=== PATIENT | male | born 1960 | race Caucasian/White ===

== ENCOUNTER 2023-05-16 13:55 | Inpatient (IN) ==
[2023-05-16 14:47] LABS: Basophils # (auto) 0.08 K/uL (0.00-0.20); Eosinophils % (auto) 3.9 %; Hematocrit (blood only) 42.4 % (42.0-52.0); Immature Granulocytes # (auto) 0.04 K/uL (0.01-0.20); Immature Granulocytes % (auto) 0.5 %; Lymphocytes # (auto) 1.89 K/uL (1.20-3.40); Lymphocytes % (auto) 24.5 %; Mean Corpuscular Hemoglobin 30.5 pg (25.0-34.0); Mean Corpuscular Hgb Conc 35.4 g/dL (32.0-36.0); Mean Corpuscular Volume 86.4 fL (80.0-100.0); Monocytes # (auto) 0.96 K/uL (0.11-0.59); Monocytes % (auto) 12.4 %; Neutrophils # (auto) 4.45 K/uL (1.40-6.50); Neutrophils % (auto) 57.7 %; Platelet Count 349 K/uL (130-400); RDW Coefficient of Variation 12.2 % (11.5-14.5); RDW Standard Deviation 38.7 fL (36.4-46.3); Red Blood Count 4.91 M/uL (4.70-6.10); White Blood Count 7.72 K/ul (4.8-10.8)
--- NOTE | 2023-05-16 14:48 | Emergency Department Note ---
Impression & Plan New onset atrial fibrillation, Abnormal ECG ED Provider Note NAME: SAM MOJICA AGE: 62 SEX: M : 1960 ARRIVES VIA: Walk-In INFORMANT: Patient ED PROVIDER(S): John Monae DO CHIEF COMPLAINT: AFIB HPI: Patient is a 62-year-old male with a past medical history of hypertension who presents to the ER as he went in for preop testing was found to be in A-fib. He denies any headache or change in vision. No chest pain or shortness of breath. No belly pain. No nausea, vomiting, or diarrhea. He notes he is very active and does workout twice a week swimming and has no complaints. No swelling of the legs. No previous history of A-fib or stroke or diabetes or hyperlipidemia. ADDITIONAL HISTORY OBTAINED: Per HPI Chronic Medical/Social Conditions Affecting Care: Per HPI PAST MEDICAL HISTORY:See Below PAST SURGICAL HISTORY:See Below FAMILY HISTORY:See Below SOCIAL HISTORY:See Below HOME MEDICATIONS:See Below ALLERGIES:See Below VITALS:See Below PHYSICAL EXAMINATION: GENERAL: Sitting up in bed, alert, well appearing, well nourished, no distress, non-toxic EYE EXAM: normal conjunctiva. OROPHARYNX: mucous membranes are moist NECK: supple, no nuchal rigidity, no adenopathy, non-tender LUNGS: Clear to auscultation. Normal chest wall mechanics HEART: No murmurs, irregular irregular ABDOMEN: abdomen soft, non-tender, normo-active bowel sounds, no masses, no rebound or guarding. UPPER EXTREMITIES: upper extremities are grossly normal. LOWER EXTREMITIES: No pitting edema. NEURO EXAM: Normal sensorium, cranial nerves II-XII grossly intact, normal speech, no gross weakness of arms, no gross weakness of legs. MEDICAL DECISION MAKING: Patient is a 62-year-old male who presents ER for above-stated complaint. IV was established blood work was obtained. Labs show no significant leukocytosis or anemia. INR unremarkable. BMP with mild hyponatremia. LFTs bilirubin is unremarkable. Troponin negative. Portable AP upright 1 view of the chest shows no focal infiltrate. Patient was given IV Lopressor and fluids. Updated at bedside and discussed with the hospitalist for further evaluation management treatment. Consults/Care Managements Discussions: Per MDM Triage Nursing notes reviewed. Limited review of prior medical records performed Vital Signs: reviewed and remarkable for HTN, tachy Differential diagnosis: Cardiac ischemia, aortic dissection, pulmonary embolism, pneumothorax, pneumonia, pericarditis, myocarditis, esophageal rupture, GERD, cholecystitis, pancreatitis, musculoskeletal, as well as other pathologies. ER treatment provided: See below Diagnostics interpreted by me include EKG and cardiac monitoring as listed below: -Cardiac Monitoring: An order was placed for continuous cardiac monitoring. The monitor shows a rate of 101 with AFIB rhythm. -ECG: A-fib rate 91 Normal axis No PVCs QTc 469 -Laboratory studies:Interpreted by me as stated above in MDM and shown below. Imaging studies: Xrays: As interpreted by me: Portable AP upright 1 view of the chest shows no focal infiltrate CTs show: none Procedures:none Critical Care: None Past Med/Surg History Medical History (Updated 05/16/23 @ 18:40 by John Monae DO) Atrial fibrillation New onset- discovered at PAT appt 05/16/23 Arthritis HTN (hypertension) Surgical History Hx of colonoscopy History of repair of ACL left Family History (Updated 05/16/23 @ 13:25 by Sallie Cross, XI) Other No family history of adverse response to anesthesia Social History Smoking Status: Never smoker Second Hand Exposure: No; Do You Dip or Chew Tobacco: No; Hx Alcohol Use: Yes Alcohol type: beer Hx Substance Use: No Preferred Language: Wolof Communication Ability: Effective Digital Print Operator Required: No Beliefs That Will Affect Care: None Current Living Situation: Spouse Feels Safe at Home: Yes Assistive Devices: None Allergies Allergies Allergy/AdvReac Type Severity Reaction Status Date / Time No Known Allergies Allergy Verified 05/16/23 13:08 Home Meds Home Medications Medication Instructions Recorded Confirmed amlodipine 10 mg tablet 10 mg PO HS 05/16/23 05/16/23 ibuprofen 200 mg tablet (Advil) 200 mg PO Q6H PRN Pain 05/16/23 05/16/23 losartan 100 1 tab PO QAM 05/16/23 05/16/23 mg-hydrochlorothiazide 25 mg tablet metoprolol succinate 25 mg 25 mg PO QAM 05/16/23 05/16/23 tablet,extended release 24 hr Results & Data (ED) Vital Signs Vital Signs - 24 hr 05/16/23 13:56 05/16/23 13:59 05/16/23 14:31 Temperature 35.9 C L Temperature Source Temporal Artery Scan Pulse Rate 108 H 93 H Pulse Rate from SpO2 Sensor 99 H Pulse Rhythm Respiratory Rate 15 12 Respiratory Effort / Characteristics Non-Labored Spontaneous Respiratory Depth Normal Normal Respiratory Pattern Regular Blood Pressure 158/106 H Blood Pressure Mean 123 Pulse Oximetry 98 97 Oxygen Delivery Method Room Air Room Air Sepsis Recent Fever Within 48 Hours No Sepsis New/Unexplained Change in Mental Status No Sepsis Action Taken by Nursing No Action Required 05/16/23 14:33 05/16/23 14:33 05/16/23 15:00 Temperature Temperature Source Pulse Rate 92 H 83 Pulse Rate from SpO2 Sensor 88 Pulse Rhythm Respiratory Rate 18 14 Respiratory Effort / Characteristics Respiratory Depth Respiratory Pattern Blood Pressure 139/91 Blood Pressure Mean 107 Pulse Oximetry 94 Oxygen Delivery Method Sepsis Recent Fever Within 48 Hours Sepsis New/Unexplained Change in Mental Status Sepsis Action Taken by Nursing 05/16/23 15:00 05/16/23 15:25 05/16/23 15:30 Temperature Temperature Source Pulse Rate 98 H Pulse Rate from SpO2 Sensor Pulse Rhythm Regular Respiratory Rate 20 Respiratory Effort / Characteristics Respiratory Depth Respiratory Pattern Blood Pressure 153/89 H 151/111 H Blood Pressure Mean 98 126 Pulse Oximetry 96 Oxygen Delivery Method Room Air Sepsis Recent Fever Within 48 Hours Sepsis New/Unexplained Change in Mental Status Sepsis Action Taken by Nursing 05/16/23 15:30 05/16/23 15:35 05/16/23 16:00 Temperature Temperature Source Pulse Rate 96 H 109 H Pulse Rate from SpO2 Sensor 102 H Pulse Rhythm Respiratory Rate 15 Respiratory Effort / Characteristics Respiratory Depth Respiratory Pattern Blood Pressure 162/102 H Blood Pressure Mean 123 Pulse Oximetry 96 Oxygen Delivery Method Sepsis Recent Fever Within 48 Hours Sepsis New/Unexplained Change in Mental Status Sepsis Action Taken by Nursing 05/16/23 16:00 05/16/23 16:10 05/16/23 16:11 Temperature 37.0 C Temperature Source Oral Pulse Rate 95 H 107 H Pulse Rate from SpO2 Sensor 90 106 H Pulse Rhythm Respiratory Rate 12 14 Respiratory Effort / Characteristics Respiratory Depth Respiratory Pattern Blood Pressure Blood Pressure Mean Pulse Oximetry 98 96 Oxygen Delivery Method Sepsis Recent Fever Within 48 Hours Sepsis New/Unexplained Change in Mental Status Sepsis Action Taken by Nursing 05/16/23 16:11 05/16/23 17:30 05/16/23 18:15 Temperature Temperature Source Pulse Rate 112 H 82 Pulse Rate from SpO2 Sensor Pulse Rhythm Respiratory Rate Respiratory Effort / Characteristics Respiratory Depth Respiratory Pattern Blood Pressure 152/105 H 131/99 Blood Pressure Mean 110 Pulse Oximetry Oxygen Delivery Method Sepsis Recent Fever Within 48 Hours Sepsis New/Unexplained Change in Mental Status Sepsis Action Taken by Nursing Laboratory Data 05/16/23 14:12 05/16/23 16:27 Lab Results 05/16/23 05/16/23 Range/Units 14:12 16:27 WBC 7.72 (4.8-10.8) K/ul RBC 4.91 (4.70-6.10) M/uL Hgb 15.0 (14.0-18.0) g/dl Hct 42.4 (42.0-52.0) % MCV 86.4 (80.0-100.0) fL MCH 30.5 (25.0-34.0) pg MCHC 35.4 (32.0-36.0) g/dL RDW Std Deviation 38.7 (36.4-46.3) fL RDW Coeff of Nicole 12.2 (11.5-14.5) % Plt Count 349 (130-400) K/uL MPV 9.0 L (9.4-12.4) fL Immature Gran % (Auto) 0.5 % Neut % (Auto) 57.7 % Lymph % (Auto) 24.5 % [place] % (Auto) 12.4 % Eos % (Auto) 3.9 % Baso % (Auto) 1.0 % Neut # (Auto) 4.45 (1.40-6.50) K/uL Lymph # (Auto) 1.89 (1.20-3.40) K/uL [place] # (Auto) 0.96 H (0.11-0.59) K/uL Eos # (Auto) 0.30 (0.00-0.50) K/uL Baso # (Auto) 0.08 (0.00-0.20) K/uL Immature Gran # (Auto) 0.04 (0.01-0.20) K/uL PT 10.2 (9.0-12.0) Seconds INR 0.9 (0.9-1.1) APTT 31 (21-31) Seconds PTT Ratio 1.1 Sodium 132 L (136-145) mmol/L Potassium 3.7 3.9 (3.5-5.1) mmol/L Chloride 97 L (98-107) mmol/L Carbon Dioxide 26 (21-32) mmol/L Anion Gap 9 (3-11) BUN 14 (6-23) mg/dl Creatinine 0.91 (0.6-1.4) mg/dl Est Cr Clr Drug Dosing 101.4 ml/min Est GFR ( Amer) 105.8 ml/min Est GFR (Non-Af Amer) 91.3 ml/min BUN/Creatinine Ratio 15.4 (10-20) Glucose 113 H (70-99(Fasting)) mg/dl Calcium 9.8 (8.6-10.3) mg/dl Total Bilirubin 0.6 (0.2-1.0) mg/dl AST 16 (13-39) U/L ALT 17 (7-52) U/L Alkaline Phosphatase 102 (34-104) U/L Troponin I High Sens < 2.3 2.6 (0-20) pg/ml Total Protein 8.1 (6.0-8.3) gm/dl Albumin 4.6 (3.4-5.0) gm/dl Globulin 3.5 (2.5-4.0) gm/dl Albumin/Globulin Ratio 1.3 (0.9-2) Administered Medications Discontinued Medications Sodium Chloride (Nss) 1,000 mls @ 999 mls/hr IV .Q1H1M ONE Stop: 05/16/23 17:34 Last Admin: 05/16/23 17:29 Dose: 999 mls/hr Documented By: RADHA Metoprolol Tartrate (Metoprolol Tartrate 1 Mg/Ml Vial) 5 mg IV NOW STA Stop: 05/16/23 16:35 Last Admin: 05/16/23 17:30 Dose: 5 mg Documented By: RADHA Potassium Chloride (Potassium Chloride Crtab 20 Meq Tabcr) 40 meq PO NOW STA Stop: 05/16/23 16:10 Last Admin: 05/16/23 17:27 Dose: 40 meq Documented By: RADHA Imaging Data Radiologist's Impression: Chest X-Ray 05/16/23 14:02 SINGLE VIEW CHEST CLINICAL HISTORY: Atypical chest pain FINDINGS: 2 AP, portable, upright chest radiographs are obtained. No prior studies are available for comparison at the time of dictation. The heart is enlarged. The pulmonary vasculature is noncongested. The lungs and pleural spaces are clear. No pneumothorax is seen. The bony thorax is grossly intact. IMPRESSION: No acute cardiopulmonary abnormality. ACT 112: Negative or not required by law. Electronically signed by: Sherif Rod M.D. 05/16/2023 3:40 PM Discharge Plan Visit Data Chief Complaint: Arrhythmia/Palpitations Stated Complaint: HEART ISSUE ED Provider: John Monae Discharge Problem: New onset atrial fibrillation, Abnormal ECG Forms Stand Alone Forms: [facility] Prescriptions Prescriptions: No Action ibuprofen [Advil] 200 mg Tablet 200 mg PO Q6H PRN (Reason: Pain) losartan-hydrochlorothiazide 100-25 mg tablet 1 tab PO QAM amlodipine 10 mg tablet 10 mg PO HS metoprolol succinate 25 mg tablet extended release 24 hr 25 mg PO QAM Referrals Referrals: Leilani Chapin PA-C [Primary Care Provider] -
[2023-05-16 14:55] LABS: Alanine Aminotransferase 17 U/L (7-52); Albumin Globulin Ratio 1.3 (0.9-2); Albumin Level 4.6 gm/dl (3.4-5.0); Alkaline Phosphatase 102 U/L (34-104); Anion Gap 9 (3-11); Aspartate Aminotransferase 16 U/L (13-39); BUN Creatinine Ratio 15.4 (10-20); Bilirubin,Total 0.6 mg/dl (0.2-1.0); Blood Urea Nitrogen 14 mg/dl (6-23); Calcium 9.8 mg/dl (8.6-10.3); Carbon Dioxide 26 mmol/L (21-32); Chloride 97 mmol/L (98-107); Creatinine Clr Calc Pharmacy 101.4 ml/min; Est GFR (African American) 105.8 ml/min; Est GFR (Non-African American) 91.3 ml/min; Globulin 3.5 gm/dl (2.5-4.0); Glucose 113 mg/dl (70-99(Fasting)); Potassium 3.7 mmol/L (3.5-5.1); Sodium 132 mmol/L (136-145); Total Protein 8.1 gm/dl (6.0-8.3)
[2023-05-16 15:01] LABS: Troponin I High Sensitivity < 2.3 pg/ml (0-20)
[2023-05-16 15:05] LABS: INR 0.9 (0.9-1.1); Partial Thromboplastin Ratio 1.1; Partial Thromboplastin Time 31 Seconds (21-31); Prothrombin Time 10.2 Seconds (9.0-12.0)
--- NOTE | 2023-05-16 15:41 | XRay Report ---
SINGLE VIEW CHEST CLINICAL HISTORY: Atypical chest pain FINDINGS: 2 AP, portable, upright chest radiographs are obtained. No prior studies are available for comparison at the time of dictation. The heart is enlarged. The pulmonary vasculature is noncongested . The lungs and pleural spaces are clear. No pneumothorax is seen. The bony thorax is grossly intact. IMPRESSION: No acute cardiopulmonary abnormality. ACT 112: Negative or not required by law. Electronically signed by: Sherif Rod M.D. 05/16/2023 3:40 PM
--- NOTE | 2023-05-16 15:44 | Electrocardiogram Report ---
Test Reason : Blood Pressure : / mmHG Vent. Rate : 114 BPM Atrial Rate : 000 BPM P-R Int : 000 ms QRS Dur : 086 ms QT Int : 330 ms P-R-T Axes : 000 058 035 degrees QTc Int : 454 ms Poor data quality, interpretation may be adversely affected Atrial fibrillation with rapid ventricular response Nonspecific ST and T wave abnormality Abnormal ECG When compared with ECG of 16-MAY-2023 13:44, (unconfirmed) Nonspecific T wave abnormality now evident in Inferior leads T wave inversion now evident in Anterior leads Confirmed by Walter Sánchez ([id number]) on 05/16/2023 3:44:21 PM Referred By: Confirmed By:Walter Sánchez
--- NOTE | 2023-05-16 15:47 | Electrocardiogram Report ---
Test Reason : Blood Pressure : / mmHG Vent. Rate : 091 BPM Atrial Rate : 000 BPM P-R Int : 000 ms QRS Dur : 094 ms QT Int : 382 ms P-R-T Axes : 000 067 037 degrees QTc Int : 469 ms Atrial fibrillation Incomplete right bundle branch block Abnormal ECG When compared with ECG of 16-MAY-2023 14:05, (unconfirmed) Nonspecific T wave abnormality, improved in Inferior leads Confirmed by Walter Sánchez ([id number]) on 05/16/2023 3:46:49 PM Referred By: Confirmed By:Walter Sánchez
[2023-05-16 17:15] LABS: Potassium 3.9 mmol/L (3.5-5.1)
[2023-05-16 17:21] LABS: Troponin I High Sensitivity 2.6 pg/ml (0-20)
[2023-05-16] MEDS: POTASSIUM CHLORIDE CRTAB 20 MEQ TABCR PO STA (17:27)
[2023-05-16] MEDS: SODIUM CHLORIDE 0.9% 1,000 ML IV ONE (17:29)
[2023-05-16] MEDS: METOPROLOL TARTRATE 1 MG/ML VIAL IV STA (17:30)
--- NOTE | 2023-05-16 17:52 | History & Physical Report ---
Date of Service May 16, 2023 Assessment & Plan (1) New onset atrial fibrillation: Plan: new onset afib, found in a preop ortho appointment today. Referred to the ER. Heart rate improved with Lopressor 5mg IV. Echo pending, TSH WNL. No evidence of WA/ACS as patient lacking symptoms and has nonischemic EKG, normal HS trop. No clinical evidence of heart failure or PE. He is on metoprolol at home. Will change this to 25mg PO BID and continue monitoring overnight. CHADS Vasc is 1. Will start heparin now but would defer longterm anticoagulation decision to cardiology who is consulted. (2) HTN (hypertension): Plan: chronic, at goal. Cont home medications. (3) Arthritis: Plan: Knee OA reported with upcoming plans for knee replacements in June of this year with Dr. Nogueira in [place], [place]. Cont supportive care efforts. Appreciate cardiology thoughts on preop recommendations. DVT proph: heparin Full Code Dispo-telemetry with likely dc to home in am pending cardiology recommendations. I spent a total of60 minutes coordinating, documenting, and providing care for this patient excluding time spent in the performance of separately billed services Kimberlee Nails DO [facility] History of Present Illness Chief Complaint: palpitations Primary Care Provider: Leilani Chapin PA-C Pt presents to the ER with palpitations after being sent here from clinic where he was undergoing a preop evaluation for upcoming knee surgery in June. He reports that both knees will be done in sequence by Dr. Nogueira. He was found to be in afib with rapid ventricular response. He denies any chest pain, SOB, abdominal pain or other issues. He reports feeling well and states he works out and is taken aback by this news. He denies significant caffeine intake. He does drink 2-3 beers daily on average. He doesn't smoke or use drugs. He is compliant with his antihypertensive regimen. He reports early CAD in his brother who had an WA at age 58 and his mom also had an irregular heart beat. Allergies Allergy/AdvReac Type Severity Reaction Status Date / Time No Known Allergies Allergy Verified 05/16/23 13:08 Home Medications Medication Instructions Recorded Confirmed Type amlodipine 10 mg tablet 10 mg PO HS 05/16/23 05/16/23 History ibuprofen 200 mg tablet (Advil) 200 mg PO Q6H PRN Pain 05/16/23 05/16/23 History losartan 100 1 tab PO QAM 05/16/23 05/16/23 History mg-hydrochlorothiazide 25 mg tablet metoprolol succinate 25 mg 25 mg PO QAM 05/16/23 05/16/23 History tablet,extended release 24 hr Past Med/Surg History Medical History Atrial fibrillation New onset- discovered at PAT appt 05/16/23 Arthritis HTN (hypertension) Surgical History Hx of colonoscopy History of repair of ACL left Family History (Updated 05/16/23 @ 21:35 by Kimberlee Nails DO) Brother Coronary heart disease Mother Afib Other No family history of adverse response to anesthesia Social History (Updated 05/16/23 @ 21:36 by Kimberlee Nails DO) Smoking Status: Never smoker Second Hand Exposure: No; Do You Dip or Chew Tobacco: No; Hx Alcohol Use: Yes Alcohol type: beer Alcohol Intake Frequency Comment: 2-3 daily Hx Substance Use: No Preferred Language: Luxembourgish Communication Ability: Effective Tearoom Host Required: No Beliefs That Will Affect Care: None Current Living Situation: Spouse Feels Safe at Home: Yes Assistive Devices: None Physical Exam Physical Exam: CONSTITUTIONAL: WNWD, vitals as above, generally well-appearing, NAD EYES: normal conjunctivae, no scleral icterus ENT: external ear and nose normal, MMM NECK: trachea midline RESPIRATORY: clear to auscultation bilaterally, no crackles, rales or wheezes, normal respiratory effort CARDIOVASCULAR: irregular rate and rhythm, S1 and 2 heard without murmurs, gallops or rubs, no JVD, no peripheral edema CHEST: inspection of chest was normal GASTROINTESTINAL: soft, nontender, ND, no guarding MUSCULOSKELETAL: strength 5/5 throughout, head is normocephalic and atraumatic SKIN: warm and dry NEUROLOGIC: CN 2-12 grossly intact, no sensory deficit, normal cognition, normal speech, no tremor PSYCHIATRIC: alert cooperative and oriented to person, place and time. Euthymic mood, makes good eye contact, language grossly intact, recent and remote memory grossly intact. Results & Data Results & Data Vital Signs (Past 12 Hours) Vital Signs Temp Pulse Resp BP Pulse Ox O2 Del Method 05/16/23 17:30 112 H 131/99 05/16/23 16:11 152/105 H 05/16/23 16:11 107 H 14 96 05/16/23 16:10 37.0 C 05/16/23 16:00 95 H 12 98 05/16/23 16:00 162/102 H 05/16/23 15:35 109 H 05/16/23 15:30 96 H 15 96 05/16/23 15:30 151/111 H 05/16/23 15:25 98 H 20 96 Room Air 05/16/23 15:00 153/89 H 05/16/23 15:00 83 14 94 05/16/23 14:33 139/91 05/16/23 14:33 92 H 18 05/16/23 14:31 93 H 12 97 05/16/23 13:59 35.9 C L 108 H 15 158/106 H 98 Room Air 05/16/23 13:56 Room Air Laboratory Results Short CBC 05/16/23 Range/Units 14:12 WBC 7.72 (4.8-10.8) K/ul Hgb 15.0 (14.0-18.0) g/dl Hct 42.4 (42.0-52.0) % Plt Count 349 (130-400) K/uL BMP 05/16/23 05/16/23 14:12 16:27 Sodium 132 L Potassium 3.7 3.9 Chloride 97 L Carbon Dioxide 26 BUN 14 Creatinine 0.91 Glucose 113 H Calcium 9.8 Liver Function 05/16/23 Range/Units 14:12 Total Bilirubin 0.6 (0.2-1.0) mg/dl AST 16 (13-39) U/L ALT 17 (7-52) U/L Alkaline Phosphatase 102 (34-104) U/L Albumin 4.6 (3.4-5.0) gm/dl Diagnostic Findings Chest X-Ray 05/16/23 14:02 SINGLE VIEW CHEST CLINICAL HISTORY: Atypical chest pain FINDINGS: 2 AP, portable, upright chest radiographs are obtained. No prior studies are available for comparison at the time of dictation. The heart is enlarged. The pulmonary vasculature is noncongested. The lungs and pleural spaces are clear. No pneumothorax is seen. The bony thorax is grossly intact. IMPRESSION: No acute cardiopulmonary abnormality. ACT 112: Negative or not required by law. Electronically signed by: Sherif Rod M.D. 05/16/2023 3:40 PM Code Status & VTE Plan VTE Prophylaxis Plan VTE Prophylaxis will be ordered: Yes
[2023-05-16] MEDS ORDERED: Heparin IV Adult Wt-Based Standard w/ INITIAL Bolus Protocol IV SCH (19:35)
[2023-05-16] MEDS ORDERED: HEPARIN SOD (PORCINE) 1000 UNIT/ML IV ONE (19:48)
[2023-05-16 20:40] LABS: Thyroid Stimulating Hormone 1.388 uIu/ml (0.300-4.500)
[2023-05-16] MEDS: HEPARIN SODIUM/DEXTROSE 25,000 UNITS/500 ML BAG IV SCH (22:40)
[2023-05-16] MEDS: Heparin IV Adult Wt-Based Standard w/ INITIAL Bolus Protocol IV STA (22:44)
[2023-05-16] MEDS: HEPARIN SOD (PORCINE) 1000 UNIT/ML IV ONE (23:01)
[2023-05-16] MEDS ORDERED: POLYETHYLENE (MIRALAX) 17 GM PACK PO PRN (23:01)
[2023-05-16] MEDS ORDERED: ONDANSETRON INJ 2 MG/ML 2 ML VIAL IV PRN (23:01)
[2023-05-16] MEDS ORDERED: ACETAMINOPHEN 325 MG TAB PO PRN (23:01)
[2023-05-16] MEDS: amLODIPine BESYLATE 5 MG TAB PO STA (23:13)
[2023-05-16] MEDS: METOPROLOL TARTRATE 25 MG TAB PO SCH (23:13)
[2023-05-16] MEDS ORDERED: Nursing to Pharmacy Communication SCH (23:15)
[2023-05-17 04:35] LABS: Hemoglobin 14.1 g/dl (14.0-18.0); Mean Corpuscular Hemoglobin 30.8 pg (25.0-34.0); Mean Corpuscular Hgb Conc 35.3 g/dL (32.0-36.0); Mean Corpuscular Volume 87.3 fL (80.0-100.0); Platelet Count 300 K/uL (130-400); RDW Coefficient of Variation 12.2 % (11.5-14.5); RDW Standard Deviation 39.1 fL (36.4-46.3); Red Blood Count 4.58 M/uL (4.70-6.10); White Blood Count 6.77 K/ul (4.8-10.8)
[2023-05-17 04:49] LABS: BUN Creatinine Ratio 18.3 (10-20); Calcium 8.9 mg/dl (8.6-10.3); Creatinine Clr Calc Pharmacy 129.9 ml/min; Est GFR (African American) 118.2 ml/min; Magnesium 1.8 mg/dl (1.7-2.4); Potassium 3.8 mmol/L (3.5-5.1)
[2023-05-17 05:03] LABS: ANTI-Xa, UFH(UnfractionatedHep 0.68 IU/ml (0.3-0.7)
--- NOTE | 2023-05-17 07:01 | Hospitalist Progress Note ---
Date of Service May 17, 2023 Assessment & Plan (1) New onset atrial fibrillation: (2) HTN (hypertension): (3) Arthritis: Plan: Mr. Hagan is a 62 year old gentleman with past medical history remarkable for hypertension and right knee OA planning a knee replacement was noted to be in atrial fibrillation at pre-operative encounter, where it was recommended that patient go to ED for evaluation. Admission EKG without RVR. #New onset atrial fibrillation [id number] 1 Cardiology consult Continue Metoprolol XL 25mg BID #Knee OA -reported with upcoming plans for knee replacements in June of this year with Dr. Nogueira in [place], [place]. Cont supportive care efforts. Appreciate cardiology thoughts on preop recommendations. #HTN chronic, at goal. Cont home medications. Losartan-HCTZ, Metoprolol XL, Amlodipine DVT proph: heparin Full Code Admission and Anticipated Discharge Date Admission Date: May 16, 2023 Subjective No acute events overnight Results & Data Results & Data Vital Signs (Past 12 Hours) Vital Signs Temp Pulse Pulse Resp BP BP Pulse Ox 05/17/23 04:23 36.6 C 71 18 124/85 97 05/17/23 00:06 36.5 C 73 18 124/85 97 05/16/23 23:01 05/16/23 21:23 36.6 C 87 18 157/102 H 96 05/16/23 20:55 86 05/16/23 20:24 85 154/114 H Pulse Ox O2 Del Method O2 Del Method 05/17/23 04:23 Room Air 05/17/23 00:06 Room Air 05/16/23 23:01 99 Room Air 05/16/23 21:23 Room Air 05/16/23 20:55 05/16/23 20:24 Laboratory Results Short CBC 05/16/23 05/17/23 Range/Units 14:12 04:19 WBC 7.72 6.77 (4.8-10.8) K/ul Hgb 15.0 14.1 (14.0-18.0) g/dl Hct 42.4 40.0 L (42.0-52.0) % Plt Count 349 300 (130-400) K/uL BMP 05/16/23 05/16/23 05/17/23 14:12 16:27 04:19 Sodium 132 L 131 L Potassium 3.7 3.9 3.8 Chloride 97 L 100 Carbon Dioxide 24 BUN 14 13 Creatinine 0.91 0.71 Glucose 113 H 109 H Calcium 9.8 8.9 Liver Function 05/16/23 Range/Units 14:12 Total Bilirubin 0.6 (0.2-1.0) mg/dl AST 16 (13-39) U/L ALT 17 (7-52) U/L Alkaline Phosphatase 102 (34-104) U/L Albumin 4.6 (3.4-5.0) gm/dl Medications Administered Home Medications Medication Instructions Recorded Confirmed Last Taken amlodipine 10 mg tablet 10 mg PO HS 05/16/23 05/16/23 05/15/23 ibuprofen 200 mg tablet (Advil) 200 mg PO Q6H PRN Pain 05/16/23 05/16/23 Unknown losartan 100 1 tab PO [facility] 05/16/23 05/16/23 05/16/23 mg-hydrochlorothiazide 25 mg tablet metoprolol succinate 25 mg 25 mg PO [facility] 05/16/23 05/16/23 05/16/23 tablet,extended release 24 hr Active Medications Generic Name Dose Route Start Last Admin Trade Name Freq PRN Reason Stop Dose Admin Heparin Sodium/Dextrose 25,000 units in 500 mls @ 30 mls/hr 05/16/23 20:00 05/16/23 22:40 Heparin Sodium/Dextrose IV 06/15/23 19:59 1,500 units/hr .[id number] GLENDA 30 mls/hr Administration Protocol 1,500 UNITS/HR Metoprolol Tartrate 25 mg 05/16/23 23:01 05/16/23 23:13 Metoprolol Tartrate 25 Mg Tab PO 06/15/23 23:00 25 mg BID GLENDA Administration
[2023-05-17] MEDS: LOSARTAN/HCTZ 50/12.5MG TAB PO SCH (08:12)
--- NOTE | 2023-05-17 08:52 | Cardiology Consultation ---
Date of Consultation May 17, 2023 Assessment & Plan (1) New onset atrial fibrillation: (2) HTN (hypertension): Plan Assessment: Patient is a 62 year-old male that presented to the ED after he was found to be in atrial fibrillation during a routine EKG at pre-admission testing . No prior history and remains asymptomatic. We have been asked to see and advise course of action. Plan: 1. New onset atrial fibrillation -Etiology unclear as labs remain unremarkable and patient denies any prior history of a-fib or acute illness/event that may have precipitated the occurance. -Highly suspicious for sleep apnea given knowledge of +snoring, body habitus and concurrent HTN. Will need sleep evaluation as an OP for further evaluation. -Discussed the pathophysiology and course of A-fib with patient along with risk for a thromboembolic event if not treated with anticoagulation. Patient is currently on a heparin gtt. -Discussed possible treatment options including conservative management with rate control medications and AC therapy as patient is asymptomatic vs pursuit of a KANDY and DCCV for rhythm mandaen. -Given short length of time patient has been on a heparin gtt and known length of time that patient has remained in A-fib, advised to wait on DCCV. He is slated to have a total knee replacement in June; however, also discussed that rhythm mandaen to NSR prior to surgery not only would reduce the risk of a thromboembolic event, but will also lead to better post operative outcomes. -Echocardiogram reviewed which demonstrates normal LVEF, mild mitral valvular disease, and normal left atrial. The right atria is borderline enlarged which again leads suspect to probable untreated sleep apnea. -Patient should remain on Metoprolol tartrate 25mg PO BID for rate control. -Will discontinue Heparin gtt in lieu of starting Eliquis 5mg PO BID. Please ensure patient is given a pharmaceutical drug card to assist with cost if needed. -Plan will be as follows. Stressed the importance of medication therapy, especially no missed doses of Eliquis. He is have a follow up with Cardiology in 3 weeks with plan for an OP DCCV in approx one month. He is aware that he will need to push off his first knee surgery until late July as patient will need to remain on oral AC therapy for 4 weeks status post DCCV. Patient verbalizes understanding. -Patient may be discharged when appropriate with primary team. 2. HTN: -At target. -Continue Amlodipine 10mg and Losartan/HCTZ 50/12/5mg as per home regimen. -Will need sleep medicine work up outpatient. Case has been discussed with Dr. Carter. Further recommendations regarding plan of care as per his assessment. I spent a total of 40 minutes on the date of service in preparation, delivery, documentation of the care provided to the patient excluding any time spent in the performance of separately billed services. SULAIMAN King [facility] Cardiology [facility] Supervising Physician Co-Signing Physician Notes The patient was seen and examined personally. Assessment and plan as well outlined above reviewed and discussed with the advanced provider. 62 year old male without prior history of cardiac disease found asymptomatically to be in atrial fibrillation on routine preop EKG for elective knee surgery. Rate elevation improved with increase in beta blockade overnight. Anticoagulated with IV heparin with planned transition to Eliquis.(CHADSVASC 1 ) Discussed management in detail with plan as above. Cardioversion after 3 weeks anticoagulation. Meds as ordered, Sleep eval History of Present Illness Reason for Consultation: New onset A-fib Requesting Physician: [facility] Hospitalist Attending Physician: Shelbi Anthony MD History of Present Illness HPI: Patient is a 62 year-old male with PMHx significant for HTN presented to the ED after an EKG obtained during preoperative testing demonstrated that the patient was in atrial fibrillation, rate 98 bpm. Repeat EKG demonstrates A-fib with RVR 114bpm with Nonspecific ST and T wave abnormality. A third EKG obtained demonstrates A-fib rate 91bpm, incomplete right BBB. Patient remains completely asymptomatic. Patient seen and examined today. He is siting out of bed in a chair without complaint. Denies any complaints of chest pain, pressure, palpitations, no shortness of breath, no PND, pre-syncope, syncope or edema. He was having a preop work up for knee replacement slated to occur in June. Patient denies any recent acute illness, no significant stressors, no N/V/D, no fevers. He reports no recent medication changes. Patient denies any history of sleep apnea, but does admit to snoring. states that no one has ever mentioned him "gasping or stop breathing" in his sleep. Review of telemetry demonstrates Atrial fibrillation, rate controlled 60-90's. There is notation of a 4.1 second pause at 0216 pause. Patient states that he was not asleep during the episode, and that the nurses came running in and scared him. Allergies Allergy/AdvReac Type Severity Reaction Status Date / Time No Known Allergies Allergy Verified 05/16/23 13:08 Home Medications Medication Instructions Recorded Confirmed Type amlodipine 10 mg tablet 10 mg PO HS 05/16/23 05/16/23 History ibuprofen 200 mg tablet (Advil) 200 mg PO Q6H PRN Pain 05/16/23 05/16/23 History losartan 100 1 tab PO QAM 05/16/23 05/16/23 History mg-hydrochlorothiazide 25 mg tablet apixaban 5 mg tablet (Eliquis) 5 mg PO BID #60 tabs 05/17/23 Rx metoprolol tartrate 25 mg tablet 25 mg PO BID #60 tabs 05/17/23 Rx Patient History Medical History HTN (hypertension) Atrial fibrillation New onset- discovered at PAT appt 05/16/23 Arthritis Surgical History Hx of colonoscopy History of repair of ACL left Family History Brother Coronary heart disease Mother Afib Other No family history of adverse response to anesthesia Social History Smoking Status: Never smoker Second Hand Exposure: No; Do You Dip or Chew Tobacco: No; Hx Alcohol Use: Yes Alcohol type: beer Alcohol Intake Frequency Comment: 2-3 daily Hx Substance Use: No Preferred Language: Swedish Communication Ability: Effective [employer] History Teacher Required: No Beliefs That Will Affect Care: None Current Living Situation: Spouse Other Information That Helps Us Care for You: No Feels Safe at Home: Yes Safety Concerns: Feels Safe At This Time Assistive Devices: None Review of Systems Review of Systems: All systems reviewed & are unremarkable except as noted in HPI & below Physical Exam Constitutional: WD/WN, vitals as above + overweight Neck: normal visual inspection and trachea midline Respiratory: normal respiratory effort; no respiratory distress and no labored breathing Cardiovascular: Rate/Rhythm: regular rate and + irregularly irregular Heart Sounds: normal S1 and normal S2; no murmur Vessels: dorsalis pedis pulses present; no JVD Extremities: no edema Skin: no rashes, warm and dry Psychiatric: A+Ox3, euthymic affect Results & Data Vital Signs (Past 12 Hours) Vital Signs Temp Pulse Pulse Resp BP Pulse Ox Pulse Ox 05/17/23 07:48 36.7 C 76 20 141/98 H 98 05/17/23 07:19 77 05/17/23 04:23 36.6 C 71 18 124/85 97 05/17/23 00:06 36.5 C 73 18 124/85 97 05/16/23 23:01 99 05/16/23 21:23 36.6 C 87 18 157/102 H 96 05/16/23 20:55 86 O2 Del Method O2 Del Method 05/17/23 07:48 Room Air 05/17/23 07:19 05/17/23 04:23 Room Air 05/17/23 00:06 Room Air 05/16/23 23:01 Room Air 05/16/23 21:23 Room Air 05/16/23 20:55 Laboratory Results Cardiac Enzymes 05/16/23 05/16/23 Range/Units 14:12 16:27 AST 16 (13-39) U/L Troponin I High Sens < 2.3 2.6 (0-20) pg/ml Coagulation 05/16/23 Range/Units 14:12 PT 10.2 (9.0-12.0) Seconds APTT 31 (21-31) Seconds CBC 05/16/23 05/17/23 Range/Units 14:12 04:19 WBC 7.72 6.77 (4.8-10.8) K/ul RBC 4.91 4.58 L (4.70-6.10) M/uL Hgb 15.0 14.1 (14.0-18.0) g/dl Hct 42.4 40.0 L (42.0-52.0) % Plt Count 349 300 (130-400) K/uL Neut # (Auto) 4.45 (1.40-6.50) K/uL Lymph # (Auto) 1.89 (1.20-3.40) K/uL [place] # (Auto) 0.96 H (0.11-0.59) K/uL Eos # (Auto) 0.30 (0.00-0.50) K/uL Baso # (Auto) 0.08 (0.00-0.20) K/uL Comprehensive Metabolic Panel 05/16/23 05/16/23 05/17/23 Range/Units 14:12 16:27 04:19 Sodium 132 L 131 L (136-145) mmol/L Potassium 3.7 3.9 3.8 (3.5-5.1) mmol/L Chloride 97 L 100 (98-107) mmol/L Carbon Dioxide 26 24 (21-32) mmol/L BUN 14 13 (6-23) mg/dl Creatinine 0.91 0.71 (0.6-1.4) mg/dl Glucose 113 H 109 H (70-99(Fasting)) mg/dl Calcium 9.8 8.9 (8.6-10.3) mg/dl AST 16 (13-39) U/L ALT 17 (7-52) U/L Alkaline Phosphatase 102 (34-104) U/L Total Protein 8.1 (6.0-8.3) gm/dl Albumin 4.6 (3.4-5.0) gm/dl Intake and Output 05/16/23 05/17/23 05/17/23 22:59 06:59 14:59 Intake Total 1000 / 1200 200 / 1200 251 / 251 Balance 1000 / 1200 200 / 1200 251 / 251 Intake: IV 1000 / 1000 251 / 251 Heparin Sodium/Dextrose 25,000 251 / 251 units In 500 ml @ 1,500 UNITS/ HR 30 mls/hr IV .[id number] [facility] Rx #:[id number] Sodium Chloride 0.9% 1,000 ml @ 1000 / 1000 999 mls/hr IV .[id number] ONE Rx#: [id number] Oral 200 / 200 Other: # Unmeasured Voids 1 Weight 101.4 kg 101.6 kg Weight Measurement Method Built in Bedscale Standing Scale Diagnostic Findings Echocardiogram 05/17/23 LVEF 50-55% Borderline LVH LV wall motion is normal Trace MR Mild to moderate TR No suggestion of pulmonary HTN
[2023-05-17] MEDS: APIXABAN 5 MG TABLET PO STA (12:23)
--- NOTE | 2023-05-17 14:09 | Communication Note ---
Date of Service: May 17, 2023 Spoke with XI Ward who is caring for patient today. Requested that a demographic sheet be faxed to our [facility] office to arrange for OP established care/follow up and will schedule DCCV at that time.
--- NOTE | 2023-05-17 16:09 | Electrocardiogram Report ---
Test Reason : Blood Pressure : / mmHG Vent. Rate : 073 BPM Atrial Rate : 070 BPM P-R Int : 000 ms QRS Dur : 088 ms QT Int : 394 ms P-R-T Axes : 000 065 044 degrees QTc Int : 434 ms Atrial fibrillation Abnormal ECG When compared with ECG of 16-MAY-2023 15:05, No significant change was found Confirmed by Walter Sánchez ([id number]) on 05/17/2023 4:09:25 PM Referred By: REFERRED SELF Confirmed By:Walter Sánchez
--- NOTE | 2023-05-17 16:56 | Discharge Summary ---
Discharge Summary Date of Service May 17, 2023 Notes For Next Care Provider Medication Changes From Visit Eliquis 5mg BID Metoprolol Tartrate 25mg BID Admission HPI Per Admitting Provider Pt presents to the ER with palpitations after being sent here from clinic where he was undergoing a preop evaluation for upcoming knee surgery in June. He reports that both knees will be done in sequence by Dr. Nogueira. He was found to be in afib with rapid ventricular response. He denies any chest pain, SOB, abdominal pain or other issues. He reports feeling well and states he works out and is taken aback by this news. He denies significant caffeine intake. He does drink 2-3 beers daily on average. He doesn't smoke or use drugs. He is compliant with his antihypertensive regimen. He reports early CAD in his brother who had an NV at age 58 and his mom also had an irregular heart beat. Admission Exam Per Admitting Provider CONSTITUTIONAL: WNWD, vitals as above, generally well-appearing, NAD EYES: normal conjunctivae, no scleral icterus ENT: external ear and nose normal, MMM NECK: trachea midline RESPIRATORY: clear to auscultation bilaterally, no crackles, rales or wheezes, normal respiratory effort CARDIOVASCULAR: irregular rate and rhythm, S1 and 2 heard without murmurs, gallops or rubs, no JVD, no peripheral edema CHEST: inspection of chest was normal GASTROINTESTINAL: soft, nontender, ND, no guarding MUSCULOSKELETAL: strength 5/5 throughout, head is normocephalic and atraumatic SKIN: warm and dry NEUROLOGIC: CN 2-12 grossly intact, no sensory deficit, normal cognition, normal speech, no tremor PSYCHIATRIC: alert cooperative and oriented to person, place and time. E uthymic mood, makes good eye contact, language grossly intact, recent and remote memory grossly intact. Principal Dx & Hospital Course #1 = Principal Diagnosis (1) New onset atrial fibrillation: Plan Mr. Hagan is a 62 year old gentleman with past medical history remarkable for hypertension and right knee OA planning a knee replacement was noted to be in atrial fibrillation at pre-operative encounter, where it was recommended that patient go to ED for evaluation. Admission EKG without RVR. Patient evaluated by Cardiology and plan for OP DCCV. #New onset atrial fibrillation [id number] 1 Cardiology consult Continue Metoprolol Tartrate 25mg BID Eliquis 5mg BID #Knee OA -reported with upcoming plans for knee replacements in June of this year with Dr. Nogueira in [place], [place]. Cont supportive care efforts. Appreciate cardiology thoughts on preop recommendations. #HTN chronic, at goal. Cont home medications. Losartan-HCTZ, Metoprolol XL, Amlodipine On discharge, patient was ambulating halls and denying any acute concerns. Discussed in depth the need to take eliquis and follow up with Cardiology. Discharge Exam Constitutional WD/WN, vitals as above Cardiovascular irregularly irregular Gastrointestinal (Abdomen) normal bowel sounds, soft, nontender, no hepatosplenomegaly Musculoskeletal no cyanosis or clubbing, extremities motor strength 5/ Updated Medication List Medication Instructions Recorded Confirmed Type amlodipine 10 mg tablet 10 mg PO HS 05/16/23 05/16/23 History ibuprofen 200 mg tablet (Advil) 200 mg PO Q6H PRN Pain 05/16/23 05/16/23 History losartan 100 1 tab PO QAM 05/16/23 05/16/23 History mg-hydrochlorothiazide 25 mg tablet apixaban 5 mg tablet (Eliquis) 5 mg PO BID #60 tabs 05/17/23 Rx metoprolol tartrate 25 mg tablet 25 mg PO BID #60 tabs 05/17/23 Rx Hospital Stay Data Consultations 05/16/23 16:34 ED Decision to Admit Stat 05/16/23 19:35 Consult Cardiology Routine Pending Results Patient Have Any Pending Studies at Discharge: No Discharge Instructions Given to Patient (Per Discharging Provider) You were admitted after being noted to have atrial fibrillation, an abnormal heart rhythm. You were evaluated by Cardiology who recommends the following: -Hold home metoprolol succinate 25mg -Start metoprolol tartrate 25 two times a valeri -Start Apixaban 5mg two times a day for stroke/clot prevention Please follow up with cardiology to discuss outpatient cardioversion in 1 month to help your heart resume a normal rhythm Total Time Total Time Spent Total Time Spent (In Minutes): 35
[2023-05-17] MEDS ORDERED: amLODIPine BESYLATE 5 MG TAB PO SCH (21:00)
[2023-05-17] MEDS ORDERED: APIXABAN 5 MG TABLET PO SCH (21:00)
== END 2023-05-17 14:10 | disposition home or self-care (01) | DRG 310 ==
LOC: ED 13:55 → 4W 17:49 → SUATTDRO 17:49 → 4W 20:43

== ENCOUNTER 2023-08-10 08:29 | Observation (INO) ==
--- NOTE | 2023-05-16 13:17 | PAT Medication Instructions ---
Medication Instructions Date of Service May 16, 2023 Home Medications Amlodipine PO QPM Losartan PO QAM Metoprolol 0 tab PO QAM ibuprofen 200 mg tablet (Advil) 200 mg PO Q6H PRN Pain ASK your surgeon for instructions ibuprofen 200 mg tablet (Advil) 200 mg PO Q6H PRN Pain DO NOT take the morning of surgery Losartan PO QAM Take morning of surgery With a small sip of water, OTHERWISE NOTHING TO EAT OR DRINK AFTER MIDNIGHT: Metoprolol PO QAM Take evening before surgery Amlodipine PO QPM Other Notes If you have any questions please call us at [phone] or [phone] or [phone] or [phone]
--- NOTE | 2023-05-16 13:26 | Anesthesiology Consultation ---
Date of Service May 16, 2023 Assessment & Plan (1) Encounter for pre-operative examination: Chart Review Chart Review: Patient seen in Pre Admission Testing Surgeon's office informed 06/22/23 TKA will need postponed. Patient aware. - Prior to reschedule - will need PCP and cardio clearance - Did send message to surgeon inquiring if patient would still be scheduled as OPJ Patient with new onset atrial fibrillation. Sent to ED for further evaluation. Incident report done. Patient did get admitted to [facility] from 05/16/23- 05/17/23 Per [facility] appt on 05/16/23, no recent illness/disease exposures, illness related symptoms, or recent illness/disease positive tests. Will leave to surgeon's discretion if preop Covid testing needed Per cardiology consultation during CT admission 05/17/23= patient presented to ED after he was found to be in atrial fibrillation during routine EKG at [facility]. new onset atrial fibrillationetiology unclear as labs remain unremarkable and patient denies any prior history of A-fib or acute illness/event. Highly suspicious for sleep apnea. Will need sleep evaluation as outpatient for further evaluation. Discussed possible treatment options. Will wait on DCCV at this time. Currently scheduled for total knee replacement in June, however, also discussed that rhythm mormonism to NSR prior to surgery not only would reduce the risk of thromboembolic event, but will also lead to better postoperative outcomes. Echo reviewed. Patient to remain on metoprolol. Will start patient on Eliquis. "He is have a follow up with Cardiology in 3 weeks with plan for an OP DCCV in approx one month. He is aware that he will need to push off his first knee surgery until late July as patient will need to remain on oral AC therapy for 4 weeks status post DCCV. Patient verbalizes understanding. Teaching & Discussion Pre-Anesthesia Teaching/Discussion Notes: Instructed NPO after midnight before surgery,except medications with 15 cc of water. Medication instructions provided according to the PAT guidelines. History Surgery Operation Date: 06/22/23 08:15 Proposed Procedures p Left Total Knee Arthroplasty - Kb Nogueira MD Height/Weight Height: 5 ft 9 in Weight: 102.2 kg Allergies Allergy/AdvReac Type Severity Reaction Status Date / Time No Known Allergies Allergy Verified 05/16/23 13:08 Medications Home Medications Medication Instructions Recorded Confirmed Last Taken amlodipine 10 mg tablet 10 mg PO HS 05/16/23 05/16/23 05/15/23 ibuprofen 200 mg tablet (Advil) 200 mg PO Q6H PRN Pain 05/16/23 05/16/23 Unknown losartan 100 1 tab PO QAM 05/16/23 05/16/23 05/16/23 mg-hydrochlorothiazide 25 mg tablet apixaban 5 mg tablet (Eliquis) 5 mg PO BID #60 tabs 05/17/23 Unknown metoprolol tartrate 25 mg tablet 25 mg PO BID #60 tabs 05/17/23 Unknown Past Medical History Medical History Arthritis Atrial fibrillation New onset- discovered at PAT appt 05/16/23 HTN (hypertension) Past Family History Family History Brother Coronary heart disease Mother Afib Other No family history of adverse response to anesthesia Past Surgical History Surgical History History of repair of ACL left Hx of colonoscopy Past Anesthesia History No Hx of Anesthesia Complications and No Family Hx of Anesthesia Complications History of PONV No Hx of PONV and No Hx of Motion Sickness Social History Smoking Status: Never smoker Do You Dip or Chew Tobacco: No Hx Alcohol Use: Yes Alcohol type: beer alcohol intake frequency: 0-2 drinks per day (1-2 beers/daily) Hx Substance Use: No substance use type: does not use Review of Systems Patient denies chest pain, shortness of breath, dyspnea on exertion, reflux, cough, wheezing, palpitations. No hx of seizures, stroke, DE, apnea/snoring. No hx of blood clots or blood transfusions Physical Exam Vital Signs VITALS BP 146/87 P 98 TEMP 97.9 SP02 100% RESP 16 Constitutional no acute distress ENMT Mouth: no TMJ clicking Thyromental Distance: > or= 3.5 Finger Breadths (3.5) Mallampati Class: II Neck neck extension not limited Respiratory normal respiratory effort; no respiratory distress Auscultation: lungs clear to auscultation bilaterally; no wheezes Cardiovascular Heart Sounds: no murmur Vessels: no carotid bruit Irregularly irregular- mildly tachycardic Musculoskeletal Spine: no pain with cervical ROM Extremities: extremities normal to inspection Psychiatric Orientation: alert Lab Results Anesthesia Preop Results Results Anesthesia Widget: WBC 6.77 K/ul (4.8-10.8) 05/17/23 Hgb 14.1 g/dl (14.0-18.0) 05/17/23 Hct 40.0 % (42.0-52.0) L 05/17/23 Plt 300 K/uL (130-400) 05/17/23 Na 131 mmol/L (136-145) L 05/17/23 K 3.8 mmol/L (3.5-5.1) 05/17/23 Cl 100 mmol/L (98-107) 05/17/23 CO2 24 mmol/L (21-32) 05/17/23 BUN 13 mg/dl (6-23) 05/17/23 Creat 0.71 mg/dl (0.6-1.4) 05/17/23 Glucose Level 109 mg/dl (70-99(Fasting)) H 05/17/23 POC Glucose 106 mg/dl (70-99) H 05/17/23 PT 10.2 Seconds (9.0-12.0) 05/16/23 PTT 31 Seconds (21-31) 05/16/23 INR 0.9 (0.9-1.1) 05/16/23 TSH 1.388 uIu/ml (0.300-4.500) 05/16/23 Urine Color Yellow 05/16/23 Urine Appearance Clear (Clear) 05/16/23 Urine pH 6.0 (4.5-7.5) 05/16/23 Urine Specific [place] 1.018 (1.000-1.030) 05/16/23 Urine Protein Negative (Negative) 05/16/23 Urine Glucose (UA) Trace (Negative) H 05/16/23 Urine Ketones Negative (Negative) 05/16/23 Urine Blood Negative (Negative) 05/16/23 Urine Nitrite Negative (Negative) 05/16/23 Urine Bilirubin Negative (Negative) 05/16/23 Urine Urobilinogen Negative (Negative) 05/16/23 Urine Leukocyte Esterase Negative (Negative) 05/16/23 Blood Type O Positive 05/16/23 Antibody Screen NEGATIVE 05/16/23 Testing Laboratory Results Hyponatremia- mild Electrocardiogram Date: 05/17/23 Findings: + AFIB @ (73 bpm) When compared to EKG from May 16, 2023- no significant change per cardio Chest X-Ray Date: 05/16/23 Findings: + NAD FINDINGS: 2 AP, portable, upright chest radiographs are obtained. No prior studies are available for comparison at the time of dictation. The heart is enlarged. The pulmonary vasculature is noncongested. The lungs and pleural spaces are clear. No pneumothorax is seen. The bony thorax is grossly intact. Echocardiogram Date: 05/17/23 EF: 50-55% RWMA: + none Other Findings: + LVH (Borderline concentric) Borderline right atrial enlargement Mild to moderate TR Doppler findings do not suggest pulmonary hypertension
--- NOTE | 2023-07-27 12:01 | Anesthesiology Consultation ---
Date of Service July 27, 2023 Assessment & Plan (1) Encounter for pre-operative examination: Chart Review Chart Review: Acceptable Risk for Surgery (pending cardio clearance ) and Patient NOT seen in Pre Admission Testing - Awaiting final cardio preop clearance office visit ([facility]) 07/24/23 (still in draft) - Patient currently scheduled as 23 hour observation -Infectious Disease screening: Per [facility] nursing assessment on 07/25/23. No known infectious disease contacts in past 10 days or current infectious disease symptoms. No recent travel outside the country. Patient seen by PCP 07/18/2023 = seen for preop evaluation. Has cardiac clearance scheduled in the future. C/o lesion to chest. 06/26/2023 labs reviewed- acceptable. According to the revised cardiac risk index, patient's risk for surgery is 0 points/class I risk. At this time, patient's current medical conditions are stable and patient is medically optimized for surgery. History Surgery Operation Date: 06/22/23 08:15 Proposed Procedures p Left Total Knee Arthroplasty - bK Nogueira MD Operation Date: 08/10/23 11:45 Proposed Procedures p Left Total Knee Arthroplasty - Kb Nogueira MD Height/Weight Height: 5 ft 9 in Weight: 102.058 kg Allergies Allergy/AdvReac Type Severity Reaction Status Date / Time No Known Allergies Allergy Verified 07/25/23 15:03 Medications Home Medications Medication Instructions Recorded Confirmed Last Taken amlodipine 10 mg tablet 10 mg PO QAM 05/16/23 07/25/23 05/15/23 ibuprofen 200 mg tablet (Advil) 200 mg PO Q6H PRN Pain 05/16/23 07/25/23 Unknown losartan 100 1 tab PO QAM 05/16/23 07/25/23 05/16/23 mg-hydrochlorothiazide 25 mg tablet apixaban 5 mg tablet (Eliquis) 5 mg PO BID #60 tabs 05/17/23 07/25/23 Unknown metoprolol tartrate 25 mg tablet 25 mg PO BID #60 tabs 05/17/23 07/25/23 Unknown Past Medical History Medical History (Updated 07/27/23 @ 12:01 by Shraddha Zapata PA-C) Arthritis Atrial fibrillation New onset- discovered at [facility] appt 05/16/23- admitted to [facility]- discharged on Eliquis and metoprolol F/u [facility] Fasting hyperglycemia Per PCP records HLD (hyperlipidemia) Per PCP records Hypertension Past Family History Family History Brother Coronary heart disease Mother Afib Other No family history of adverse response to anesthesia Past Surgical History Surgical History History of repair of ACL left Hx of colonoscopy Social History Smoking Status: Never smoker Do You Dip or Chew Tobacco: No Hx Alcohol Use: Yes Alcohol type: beer alcohol intake frequency: 0-2 drinks per day Hx Substance Use: No substance use type: does not use Lab Results Anesthesia Preop Results Results Anesthesia Widget: WBC 8.19 K/ul (4.8-10.8) 07/24/23 Hgb 14.3 g/dl (14.0-18.0) 07/24/23 Hct 40.3 % (42.0-52.0) L 07/24/23 Plt 324 K/uL (130-400) 07/24/23 Na 132 mmol/L (136-145) L 07/24/23 K 3.7 mmol/L (3.5-5.1) 07/24/23 Cl 96 mmol/L (98-107) L 07/24/23 CO2 30 mmol/L (21-32) 07/24/23 BUN 14 mg/dl (6-23) 07/24/23 Creat 0.93 mg/dl (0.6-1.4) 07/24/23 Glucose Level 165 mg/dl (70-99(Fasting)) H 07/24/23 PT 10.4 Seconds (9.0-12.0) 07/24/23 PTT 32 Seconds (21-31) H 07/24/23 INR 1.0 (0.9-1.1) 07/24/23 Urine Color Yellow 07/24/23 Urine Appearance Clear (Clear) 07/24/23 Urine pH 6.5 (4.5-7.5) 07/24/23 Urine Specific [place] 1.012 (1.000-1.030) 07/24/23 Urine Protein Negative (Negative) 07/24/23 Urine Glucose (UA) 2+ (Negative) H 07/24/23 Urine Ketones Negative (Negative) 07/24/23 Urine Blood Negative (Negative) 07/24/23 Urine Nitrite Negative (Negative) 07/24/23 Urine Bilirubin Negative (Negative) 07/24/23 Urine Urobilinogen Negative (Negative) 07/24/23 Urine Leukocyte Esterase Negative (Negative) 07/24/23 Testing Laboratory Results Mild hyponatremia- chronic and stable Electrocardiogram Date: 06/26/23 Findings: + NSR @ (78bpm) Normal EKG per cardio Chest X-Ray Date: 05/16/23 Findings: + NAD FINDINGS: 2 AP, portable, upright chest radiographs are obtained. No prior studies are available for comparison at the time of dictation. The heart is enlarged. The pulmonary vasculature is noncongested. The lungs and pleural spaces are clear. No pneumothorax is seen. The bony thorax is grossly intact. Echocardiogram Date: 05/17/23 EF: 50-55% RWMA: + none Other Findings: + LVH (Borderline concentric) Borderline right atrial enlargement Mild to moderate TR Doppler findings do not suggest pulmonary hypertension Other Testing Zio monitor 07/07/23= Patient had a min HR of 46 bpm, max HR of 158 bpm, and avg HR of 73bpm. Predominant underlying rhythm was Sinus Rhythm. 11 Supraventricular Tachycardia runs occurred, the run with the fastest interval lasting 5 beats with a max rate of 158 bpm, the longest lasting 28.4 secs with an avg rate of 106 bpm. Isolated SVEs were frequent (7.2%, 83025), SVE Couplets were rare (<1.0%, 209), and SVE Triplets were rare (<1.0%, 28). Isolated VEs were rare (<1.0%), and no VE Couplets or VE Triplets were present. Ventricular Bigeminy was present. Longest episode of supraventricular tachycardia appears to be atrial tachycardia. No symptoms reported.
--- NOTE | 2023-08-08 14:55 | History & Physical Report ---
Date of Service August 08, 2023 Assessment & Plan (1) Degenerative joint disease of knee, left: Plan: Left total knee replacement with removal of hardware and patient-specific implants most likely overnight stay home health will be with [facility]. History of Present Illness Chief Complaint: Left knee pain Primary Care Provider: NO PCP Patient is a 62-year-old male with a longstanding history of bilateral knee pain. He has a previous history of left ACL reconstruction which has failed. Both knees are now associated with increasing deformity giving way and limited standing and walking tolerance. He has tried and failed both viscosupplementation and corticosteroid injections. He has also failed bracing. He has radiographic evidence of end-stage arthritis of the knees left with retained hardware. He is admitted for elective left total knee replacement as first of two-stage procedures Allergies Allergy/AdvReac Type Severity Reaction Status Date / Time No Known Allergies Allergy Verified 07/25/23 15:03 Home Medications Medication Instructions Recorded Confirmed Type amlodipine 10 mg tablet 10 mg PO QAM 05/16/23 07/25/23 History ibuprofen 200 mg tablet (Advil) 200 mg PO Q6H PRN Pain 05/16/23 07/25/23 History losartan 100 1 tab PO QAM 05/16/23 07/25/23 History mg-hydrochlorothiazide 25 mg tablet apixaban 5 mg tablet (Eliquis) 5 mg PO BID #60 tabs 05/17/23 07/25/23 Rx metoprolol tartrate 25 mg tablet 25 mg PO BID #60 tabs 05/17/23 07/25/23 Rx Past Med/Surg History Problem List (Updated 08/08/23 @ 14:55 by Kb Nogueira MD) Degenerative joint disease of knee, left Abnormal ECG (Acute) HTN (hypertension) Encounter for pre-operative examination Medical History Fasting hyperglycemia Per PCP records HLD (hyperlipidemia) Per PCP records Hypertension Atrial fibrillation New onset- discovered at [facility] appt 05/16/23- admitted to [facility]- discharged on Eliquis and metoprolol F/u [facility] Arthritis Surgical History Hx of colonoscopy History of repair of ACL left Family History Brother Coronary heart disease Mother Afib Other No family history of adverse response to anesthesia Social History Smoking Status: Never smoker Second Hand Exposure: No; Do You Dip or Chew Tobacco: No; Tobacco Cessation Education Requested by Patient: No Hx Alcohol Use: Yes Alcohol type: beer Alcohol Intake Frequency Comment: 2-3 daily Hx Substance Use: No Preferred Language: Cymraes Communication Ability: Effective Rug Receiving Clerk Required: No Beliefs That Will Affect Care: None Current Living Situation: Spouse Other Information That Helps Us Care for You: No Feels Safe at Home: Yes Safety Concerns: Feels Safe At This Time Assistive Devices: None Review of Systems Review of Systems: Bilateral knee pain and instability Physical Exam Physical Exam: Weight 105 kg BMI 33 General: Obese male who appears to be his stated age. HEENT NCAT, EOMI, PERRLA Neck: Negative bruits Heart: Regular rate and rhythm no murmurs Lungs: Breath sounds clear and present in all renae Abdomen: Obese soft nontender bowel sounds are positive Extremities: Left knee shows scars consistent with previous surgery there is varus deformity passive range of motion is 0 to 115 degrees flexion with 3 to 4 mm of medial laxity positive effusion and pain. Neurological and vascular: Intact Results & Data Results & Data Vital Signs (Past 12 Hours) Blood pressure: 146/88 Pulse: 80
[~2023-08-10 08:29] MED LIST: DEXAMETHASONE SOD INJ 4 MG/ML VIAL ONE; DexMEDEtomidine HCL IV 100 MCG/ML VIAL IV ONE; LIDOCAINE 2% 2 ML VIAL/AMP(20MG/ML) INFIL ONE; MIDAZOLAM HCL 1 MG/ML 2ML VIAL ONE; ONDANSETRON INJ 2 MG/ML 2 ML VIAL ONE; PROPOFOL IV EMULSION 10 MG/ML 20 ML VIAL IV ONE; ROPIVACAINE 0.5% 5 MG/ML 30 ML VIAL ONE; fentaNYL citrate PF 100 MCG/2 ML VIAL ONE
--- NOTE | 2023-08-10 09:16 | History & Physical Bridge Note ---
Date of Service August 10, 2023 History & Physical Bridge Note I have examined the patient, reviewed the History & Physical and in the interval since the performance of the History & Physical I have noted the following changes of clinical significance: no changes noted
[2023-08-10] MEDS: LR 500ML BOLUS, THEN 15ML/HR IV SCH (09:20)
[2023-08-10] MEDS: ACETAMINOPHEN 500 MG TAB PO SCH ×2 (09:21→14:36)
[2023-08-10] MEDS: oxyCODONE HCL 10 MG TABCR (OxyCONTIN) PO SCH (09:21)
[2023-08-10] MEDS: GABAPENTIN 600 MG DOSE PO SCH (09:21)
[2023-08-10] MEDS: FAMOTIDINE 20 MG TAB PO SCH (09:21)
[2023-08-10] MEDS: CeleBREX 200 MG CAP PO SCH ×2 (09:22→19:58)
[2023-08-10] MEDS: dexAMETHasone**PF** 10 MG/ML VIAL IV SCH (09:22)
[2023-08-10] MEDS: LR 60ML/HR IV SCH (09:30)
[2023-08-10] MEDS ORDERED: ePHEDrine sulfate 50 MG/ML AMP IV PRN (09:44)
[2023-08-10] MEDS ORDERED: ATROPINE SULFATE 0.1 MG/ML 10ML SYR IV PRN (09:44)
[2023-08-10] MEDS ORDERED: ONDANSETRON INJ 2 MG/ML 2 ML VIAL IV PRN ×2 (09:44→13:16)
[2023-08-10] MEDS ORDERED: fentaNYL citrate PF 100 MCG/2 ML VIAL IV PRN (09:44)
[2023-08-10] MEDS ORDERED: PROMETHAZINE HCL 6.25 MG in SODIUM CHLORIDE 0.9% 50 ML IV PRN (09:44)
[2023-08-10] MEDS ORDERED: BUPIVACAINE 0.25% PF 30 ML VIAL ONE (09:55)
[2023-08-10] MEDS ORDERED: BUPIVACAINE 0.5 % 5 MG/1 ML PF 10ML VIAL ONE (09:55)
[2023-08-10] MEDS: TRANEXAMIC ACID 1,000 MG **IV Pre-op IV SCH (10:30)
[2023-08-10] MEDS: ceFAZolin 2000MG 2,000 MG/15 ML SYR IV SCH ×2 (10:41→17:20)
[2023-08-10] MEDS: ORTHO JOINT ANESTHETIC ONE (11:24)
[2023-08-10] MEDS: ROPIV 0.5% 246mg, Ketorolac 30mg, EPINEPHrine 0.5mg in NSS INFIL SCH (11:40)
[2023-08-10] MEDS ORDERED: KETOROLAC 30 MG/ML VIAL ONE (11:57)
[2023-08-10] MEDS ORDERED: ePHEDrine sulfate 50 MG/5 ML SYR ONE (11:57)
--- NOTE | 2023-08-10 12:06 | Post Operative Brief Note ---
Immediate Post Op Note Date of Surgery August 10, 2023 Pre & Post Diagnosis Operation Date: 08/10/23 10:00 Pre-Op Diagnosis: Degenerative joint disease of knee, left Post-Op Diagnosis: Degenerative joint disease of knee, left I identified the patient and participated in the time-out.: Yes Procedure Operation Date: 08/10/23 10:00 Actual Procedures p Left Total Knee Replacement(Left) - Kb Nogueira MD Surgeon Kb Nogueira MD Top Executive Daniel Peoples PA-C Estimated Blood Loss 150 Findings Consistent with Post-Op Diagnosis Drains Hemovac Drain
--- NOTE | 2023-08-10 12:28 | Operative Report ---
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 And retained ACL's times screws x 2 Specimens bone and cartilage fragments and removed ACL screws Complications none Indications components used: Ruvalcaba [employer] Nephew journey 2 posterior stabilized knee system: Femur size 7 with Oxinium coating, tibia size 5 x 10, patella size 38 oval. Description of Procedure Following satisfactory spinal anesthesia the patient was supine on the operating room table. The left lower extremity was prepared with ChloraPrep and draped sterilely. A surgical timeout was performed. Using the old longitudinal midline incision the incision was deepened through the subcutaneous tissues. There was significant scarring. Hemostasis was obtained. A median parapatellar arthrotomy was performed. There was significant scarring IntraOp capsule orally. There was also severe patella Baha which made the approach to difficult and added increased time to the procedure. A partial synovectomy was performed to enhance exposure. The patella was freehand cut as it was extremely large and was interfering with visualization of the lateral side of the knee. The patella was sized for 38 button and this did relax the extensor mechanism and enhanced exposure to the lateral side of the knee. The anterior cruciate was again chronically absent there was severe disease. The patient matched femoral block was applied. Femoral distal rotation and resection were setting completed. The 4-in-1 block was used to finish preparation of the femur. The ACL screw was in the way and had to be removed. Attention was turned to the tibia. The tibial meniscal fragments were excised. The patient matched tibial block was applied. Tibial resection was completed. Again the tibial ACL screw prevented placement of the tibial stem and was removed through the cut surface of the bone. A trial reduction with the above-mentioned components was performed. This showe d very good tensioning and stability on the collateral ligaments from full extension to about 115 degrees flexion the patella tracked fairly well but there was a slight tilt and a limited lateral extracapsular release was performed. The trial components were removed. The capsule was prepared with the orthopedic cocktail. After irrigation and drying the components were cemented using Simplex T cement cementing the tibia first. Should be noted that a small stem extension was used on the tibia because of the defect created by the ACL screw. The femur was then cemented followed by the patella. When the cemented hardened the knee was checked and showed very good stability and patellar tracking. The wound was irrigated with 500 cc of experience irrigation. The capsulotomy was closed with interrupted sutures of #2 FiberWire and a running suture of #1 strata fix. Following irrigation the subcutaneous tissues were closed with 0 strata fix deep and surgical raegan in the skin. A drain had been placed prior to closure. A negative pressure wound dressing followed by compressive bandage was applied. The patient was returned to his bed in stable condition. Note: Daniel CUMMINGS was present and assisted throughout due to the complicated nature of this case. He help with preparation and set up an bindery library technical assistant throughout. He assisted with hemostasis and exposure throughout the procedure. He also closed the capsular subcutaneous and skin layers and applied the postop dressing. I attest to the content of the Intraoperative Record and any orders documented therein. Any exceptions are noted below.
[2023-08-10] MEDS: METOPROLOL SUCC 25MG EXT REL TAB PO SCH (13:15)
[2023-08-10] MEDS: TRANEXAMIC ACID 1,000 MG **IV Intra-op IV SCH (13:15)
[2023-08-10] MEDS: METOCLOPRAMIDE HCL 10 MG TABLET PO SCH (13:15)
[2023-08-10] MEDS ORDERED: MAGNESIUM HYDROXIDE SUSP 30 ML UDC PO PRN (13:16)
[2023-08-10] MEDS ORDERED: oxyCODONE HCL IR 5 MG TAB (IMMEDIATE RELEASE) PO PRN (13:16)
[2023-08-10] MEDS ORDERED: METOCLOPRAMIDE HCL INJ 5 MG/ML 2 ML VIAL IV PRN (13:16)
[2023-08-10] MEDS ORDERED: NALOXONE HCL 0.4 MG/1 ML VIAL/CARP IV PRN (13:16)
[2023-08-10] MEDS ORDERED: bisacodyL 10 MG SUPP PR PRN (13:16)
--- NOTE | 2023-08-10 13:48 | Anesthesiology Progress Note ---
Date of Service August 10, 2023 Anesthesia Post Procedure Vital Signs Vital Signs: Temp Pulse Pulse Resp BP Pulse Ox O2 Del Method 08/10/23 13:21 36.4 C L 65 18 112/72 98 Room Air 08/10/23 13:05 36.5 C 65 15 103/68 94 Room Air 08/10/23 12:55 71 13 105/67 94 Room Air 08/10/23 12:45 72 18 106/68 93 Room Air 08/10/23 12:39 36.5 C 69 16 106/68 93 Room Air 08/10/23 09:09 36.7 C 66 18 173/101 H 97 Room Air Transfer of Care Handoff Completed per policy Notes Mental Status: alert / awake / arousable and participated in evaluation Patient Amnestic to Procedure: Yes Nausea / Vomiting: adequately controlled Pain: adequately controlled Airway Patency, RR, SpO2: stable & adequate BP & HR: stable & adequate Hydration State: stable & adequate Neuraxial Anesthesia: was administered and sensory block is resolving Anesthetic Complications: no major complications apparent and Pt Satisfied with anesthetic care
[2023-08-10] MEDS: SODIUM CHLORIDE 0.9% 1,000 ML IV SCH (13:50)
[2023-08-10] MEDS: KETOROLAC TROMETHAMINE 15 MG/ML VIAL IV SCH (14:35)
[2023-08-10] MEDS: METOPROLOL TARTRATE 25 MG TAB PO SCH (19:57)
[2023-08-10] MEDS: SENNA 8.6 MG TAB PO SCH (19:58)
[2023-08-10] MEDS: DOCUSATE SODIUM 100 MG CAP PO SCH (19:59)
[2023-08-11 06:23] LABS: Hematocrit (blood only) 29.7 % (42.0-52.0); Hemoglobin 10.3 g/dl (14.0-18.0); Mean Corpuscular Hemoglobin 30.4 pg (25.0-34.0); Mean Corpuscular Hgb Conc 34.7 g/dL (32.0-36.0); Mean Corpuscular Volume 87.6 fL (80.0-100.0); Mean Platelet Volume 9.6 fL (9.4-12.4); Platelet Count 278 K/uL (130-400); RDW Coefficient of Variation 12.2 % (11.5-14.5); RDW Standard Deviation 38.9 fL (36.4-46.3); Red Blood Count 3.39 M/uL (4.70-6.10); White Blood Count 19.08 K/ul (4.8-10.8)
[2023-08-11 06:36] LABS: BUN Creatinine Ratio 24.7 (10-20); Calcium 8.8 mg/dl (8.6-10.3); Creatinine Clr Calc Pharmacy 107.9 ml/min; Est GFR (African American) 109.8 ml/min; Est GFR (Non-African American) 94.7 ml/min; Potassium 4.3 mmol/L (3.5-5.1)
--- NOTE | 2023-08-11 07:29 | Orthopedic Progress Note ---
Date of Service August 11, 2023 Assessment & Plan (1) Degenerative joint disease of knee, left: Plan: patient is doing well. He was recommended for extended stay because of history of atrial fibrillation and chronic anticoagulation. His pain is well-controlled like today we reviewed his medication protocol home therapy and activities. He understands and as long as he is cleared by therapy this morning he will be discharged to home. He will be followed by [facility] with dressing removal and drain removal on 08/11. Follow-up in the office in 2 weeks Admission and Anticipated Discharge Date Admission Date: August 10, 2023 Subjective Postoperative day #1 left total knee replacement Patient is seen at the bedside. He states that he had a good night and has not required any pain medicine at all. He has been up and ambulatory to the bathroom with assistance. He feels like he is progressing well and is ready for discharge to home. Physical Exam Physical Exam: Patient is examined at the bedside. His Valentin wrap is clean dry and intact his thigh and calf are soft and nontender. He is neurologically and vascularly intact. Hemovac drain has put out 300 cc since surgery Results & Data Vital Signs (Past 12 Hours) Vital Signs Temp Pulse Resp BP Pulse Ox O2 Del Method 08/11/23 07:00 36.6 C 65 17 124/82 99 Room Air 08/11/23 03:48 36.6 C 74 18 120/72 96 Room Air 08/10/23 23:07 36.6 C 60 18 127/74 98 Room Air 08/10/23 20:00 Room Air 08/10/23 19:42 36.8 C 62 18 122/77 98 Room Air Laboratory Results hemoglobin 10.3
[2023-08-11] MEDS: amLODIPine BESYLATE 5 MG TAB PO SCH (08:01)
[2023-08-11] MEDS: LOSARTAN/HCTZ 50/12.5MG TAB PO SCH (08:02)
[2023-08-11] MEDS: MULTIVITAMIN TAB PO SCH (08:02)
== END 2023-08-11 10:28 | disposition home health service (06) ==
LOC: 3E 08:29 → ASU 08:29